=== PATIENT | female | born 1985 | race Caucasian/White ===

== ENCOUNTER 2017-03-09 11:52 | Day surgery (SDC) | payer OTHER ==
[~2017-03-09] VITALS: Ht 170.2 cm; Wt 79.9 kg
[2017-03-09 12:26] VITALS: BP 141/88; PULSE 83; TEMP 98.5
[2017-03-09] MEDS ORDERED: MOTRIN 800800 MG/TAB PO (12:45)
[2017-03-09] MEDS ORDERED: TYLENOL 325MG325 MG PO (12:46)
[2017-03-09] MEDS ORDERED: PYRIDIUM 100MG100 MG PO ×2 (12:47→17:02)
[2017-03-09] MEDS ORDERED: ULTRAM 50MG TAB50 MG PO ×2 (12:48→17:01)
[2017-03-09 14:55] VITALS: BP 129/72; PULSE 74
[2017-03-09 15:02] VITALS: TEMP 98.8
[2017-03-09 15:10] VITALS: BP 129/83; PULSE 75
[2017-03-09 15:25] VITALS: BP 131/75; PULSE 71
[2017-03-09 15:40] VITALS: BP 123/71; PULSE 69
[2017-03-09] MEDS ORDERED: COLACE 100100 MG/CAP PO (17:01)
== END 2017-03-09 16:00 | disposition home or self-care (01) ==
LOC: SDCO 11:52
DX: R10.12 Left upper quadrant pain (principal); R10.32 Left lower quadrant pain; R31.29 Other microscopic hematuria; Z87.442 Personal history of urinary calculi; Z87.891 Personal history of nicotine dependence
CPT/HCPCS: J0690; J1100; J1885; J2250; J2405; J2704; J3010; J7120; Q9967

== ENCOUNTER → 2018-01-05 | Outpatient (CLI) | payer OTHER ==
[~2018-01-05] MED LIST: COLACE 100100 MG/CAP PO; MOTRIN 800800 MG/TAB PO; PYRIDIUM 100MG100 MG PO; TYLENOL 325MG325 MG PO; ULTRAM 50MG TAB50 MG PO
== END ==
LOC: SUN.DIA 12-29 08:02
DX: O24.419 Gestational diabetes mellitus in pregnancy, unspecified control (principal); Z3A.36 36 weeks gestation of pregnancy
CPT/HCPCS: G0108